=== PATIENT | male | born 1945 | race Caucasian/White ===

== ENCOUNTER 2018-03-29 10:15 | Emergency (ER) | payer MEDICARE ==
[2018-03-29 10:55] VITALS: BP 143/99
--- NOTE | 2018-03-29 10:55 | UC ---
HPI Wound/Suture Re-check - HPI Summary HPI Summary: Pt presents for staple removal from scalp. Jansen were placed on 03/20/18 at [place], [place] emergency room. - History Of Current Complaint Stated Complaint: STAPLE REMOVAL (NOT SEEN HERE) Time Seen by Provider: 03/29/18 10:54 Hx Obtained From: Patient Onset/Duration: Sudden Onset, Still Present Severity: Moderate - Allergies/Home Medications Allergies/Adverse Reactions: Allergies Allergy/AdvReac Type Severity Reaction Status Date / Time amoxicillin [From Augmentin] Allergy Diarrhea Verified 03/29/18 10:47 clavulanic acid Allergy Diarrhea Verified 03/29/18 10:47 [From Augmentin] PMH/Surg Hx/FS Hx/Imm Hx Previously Healthy: Yes Endocrine History: Dyslipidemia Cardiovascular History: Cardiac Disease - Surgical History Surgical History: Yes Surgery Procedure, Year, and Place: HERNIA REPAIR, ZOHREH SHOULDER SURGERY - Family History Known Family History: Positive: Cardiac Disease - Social History Occupation: Retired Lives: With Family Alcohol Use: None Substance Use Type: None Have You Smoked in the Last Year: No Review of Systems Constitutional: Negative Skin: Other - alan intact at site of laceration Eyes: Negative ENT: Negative Respiratory: Negative, Shortness Of Breath Gastrointestinal: Negative Genitourinary: Negative Motor: Negative Neurovascular: Negative Musculoskeletal: Negative Neurological: Negative Psychological: Negative Is Patient Immunocompromised?: No All Other Systems Reviewed And Are Negative: Yes Physical Exam Triage Information Reviewed: Yes Appearance: Well-Appearing Vital Signs Reviewed: Yes Eye Exam: Normal ENT Exam: Normal Dental Exam: Normal Neck exam: Normal Respiratory: Positive: No respiratory distress Musculoskeletal Exam: Normal Neurological Exam: Normal Psychological Exam: Normal Skin Exam: Other - nine alan intact, dried crusted blood surrounding alan , right side of posterior head at posterior parietal anterior occipital. edges well apporximated. no discharge, mild tenderness. Course/Dx - Differential Dx - Laceration/Wound Differential Diagnoses: Suture Removal - nine alan removed, pt tolerated well. Provider Diagnoses: staple removal, (9 alan) Discharge - Sign-Out/Discharge Documenting (check all that apply): Discharge/Admit/Transfer - Discharge Plan Condition: Stable Disposition: HOME Patient Education Materials: Stitches Removal (ED) Referrals: Adan Alexander MD [Primary Care Provider] - If Needed - Billing Disposition and Condition Condition: STABLE Disposition: Home
== END 2018-03-29 11:00 | disposition home or self-care (01) ==
LOC: UCCORT 10:15
DX: S01.01XD Laceration without foreign body of scalp, subsequent encounter (principal); X58.XXXD Exposure to other specified factors, subsequent encounter; Y93.9 Activity, unspecified; Y92.9 Unspecified place or not applicable
CPT/HCPCS: 99211; G0463

== ENCOUNTER 2018-10-12 11:04 | Day surgery (SDC) | payer MEDICARE ==
[~2018-10-12 11:04] MED LIST: Buffered Lidocaine 0.9% SYRIN* 5 ML/SYR SYRINGE INTRADERM ONE; Dexamethasone IV* 4 MG/ML 1 ML (4 MG) IV SLOW PU ONE; Famotidine IV* 10 MG/ML 2 ML (20 mg) IV ONE; Lactated Ringers 1000 ML Bag* 1,000 ML IV SCH
[2018-10-12] MEDS ORDERED: Famotidine IV* 10 MG/ML 2 ML (20 mg) ONE (11:54)
[2018-10-12] MEDS ORDERED: Dexamethasone IV* 4 MG/ML 1 ML (4 MG) ONE (11:54)
[2018-10-12] MEDS ORDERED: Clindamycin 900 MG/D5W BAG(*) 900 MG/50 ML BAG IVPB ONE (11:54)
[2018-10-12] MEDS ORDERED: Midazolam* 1 MG/ML 2 ML VIAL (2 MG) ONE (12:44)
[2018-10-12] MEDS ORDERED: fentaNYL* 50 MCG/ML 2 ML VIAL (100 MCG VIAL) ONE (12:44)
[2018-10-12] MEDS ORDERED: Ondansetron INJ* 2 MG/ML VIAL ONE (12:45)
[2018-10-12] MEDS ORDERED: Propofol* 10 MG/ML 20 ML BTL ONE (12:45)
[2018-10-12] MEDS ORDERED: Lidocain 1% EPI 1:100,000 * 30 ML MDV ONE (13:09)
[2018-10-12] MEDS ORDERED: Mineral Oil Sterile, TOPICAL* 25 ML BTL ONE (13:12)
[2018-10-12] MEDS ORDERED: Naloxone* 0.4 MG/ML 1 ML VIAL IV PRN (14:29)
[2018-10-12 15:45] VITALS: BP 101/66
== END 2018-10-12 16:19 | disposition home or self-care (01) ==
LOC: OR 11:04
PROVIDERS: ATTEND Plastic Surgery
DX: C44.229 Squamous cell carcinoma of skin of left ear and external auricular canal (principal); I10 Essential (primary) hypertension; G47.33 Obstructive sleep apnea (adult) (pediatric); K21.9 Gastro-esophageal reflux disease without esophagitis; N40.0 Benign prostatic hyperplasia without lower urinary tract symptoms; M19.90 Unspecified osteoarthritis, unspecified site; E78.5 Hyperlipidemia, unspecified
CPT/HCPCS: 88305; 88331; 88332; A9270-GY; J1100; J2250; J2405; J2704; J3010

== ENCOUNTER 2019-08-11 16:52 | Emergency (ER) | payer MEDICARE ==
--- OUTSIDE RECORDS SUMMARY | 2019-08-11 17:02 | XMS REPORT | Continuity of Care Document ---
:1945 External Reference #:[id number] Author Name KAY Baron Address [address] [place] [address] Care Team Providers Name Role Phone Adan Alexander MD - Family Medicine Care Team Information Universal Grinder Tool Dc Avila - Orthopaedic Surgery Care Team Information Universal Grinder Tool Problems Active Problems Provider Date Hyperlipidemia Adan Alexander M.D. Onset: 09/27/2014 Benign essential hypertension Adan Alexander M.D. Onset: 09/27/2014 Obstructive sleep apnea syndrome Adan Alexander M.D. Onset: 09/27/2014 Gastroesophageal reflux disease Adan Alexander M.D. Onset: 09/27/2014 Benign prostatic hypertrophy without outflow Adan Alexander M.D. Onset: 12/2013 obstruction Mixed hyperlipidemia Adan Alexander M.D. Onset: 01/16/2016 Social History Type Date Description Comments Sex Unknown Tobacco Use Start: Unknown Never Smoked Cigarettes ETOH Use Rare Tobacco Use Start: Unknown Patient has never smoked Smoking Status Reviewed: 05/22/18 Patient has never smoked Exercise Exercises sporadically is constantly on the Type/Frequency go Allergies, Adverse Reactions, Alerts Active Allergies Reaction Severity Comments Date Augmentin severe GI upset 03/23/2014 Medications Active Medications SIG Qnty Indications Ordering Provider Date Cefaclor 1 po bid x 10 20caps J01.90 Brielle 06/30/2019 250mg Capsules days KAY Cordero Levocetirizine Take 1 Tablet 90tabs Turner Julio Meza, 02/06/2016 Dihydrochloride By Mouth Every M.D. 5mg Tablets Day Simvastatin Take 1 Tablet 90tabs Turner F. Susana, 03/23/2014 20mg Tablets By Mouth Every M.D. Day Omeprazole Take One 90caps Turner Meza, 03/23/[address] Capsule By M.D. Mouth Every Day Tamsulosin HCL Take One 90caps Turner Meza, 03/23/2014 0.4mg Capsule By M.D. Capsules Mouth Every Day Finasteride Take 1 Tablet 90tabs Turner Meza, 03/23/2014 5mg Tablets By Mouth Every M.D. Day Vitamin C 1000MG Unknown E-400 Unknown 400Unit Capsules Shark Cartilage Unknown Lutein Unknown Multi Vitamin Senior Unknown Abelardo Mag Zinc Unknown Immunizations CPT Code Status Date Vaccine Lot # [id number] Given 01/16/2016 Pneumococcal Conjugate Vacc-13 [id number] Vital Signs Date Vital Result Comment 06/30/2019 1:59pm BP Systolic 114 mmHg BP Diastolic 84 mmHg Heart Rate 78 /min Body Temperature 98.1 F Weight 159.00 lb 02/18/2019 10:37am BP Systolic 132 mmHg BP Diastolic 78 mmHg Heart Rate 78 /min Body Temperature 97.3 F Respiratory Rate 20 /min Weight 163.00 lb Results Test Date Facility Test Result H/L Range Note Comprehensive Metabolic 02/18/2019 [facility]) Sodium 138 mEq/L 134-149 Prof Potassium 4.9 mEq/L 3.6-5.5 Chloride 102 mEq/L 94-112 Carbon Dioxide 27 mEq/L 21-32 Glucose 90 mg/dL 70-105 BUN 27 mg/dL High 6-26 1 Creatinine 0.9 mg/dL 0.6-1.4 BUN/Creat Ratio 30.0 CALC 8.0-36.0 Calcium 10.0 mg/dL 8.6-10.2 Total Protein 7.1 g/dL 6.4-8.3 Albumin 4.8 g/dL 3.8-5.5 Globulin 2.3 g/dL 2.0-4.8 A/G Ratio 2.1 CALC 0.6-2.3 Alk. Phosphatase 92 U/L 22-95 Alt (SGPT) 27 U/L 7-35 Ast (Sgot) 28 U/L 5-34 Total Bilirubin 0.9 mg/dL 0.2-1.3 GFR Non- >60 ml/min/1.73m^ >=60 GFR >60 ml/min/1.73m^ >=60 Laboratory test 02/18/2019 Usman Gonzalez(a) Free T4 1.11 ng/dL 0.75- 1.54 finding TSH 3.33 mIU/L 0.50-6.00 CBC Electronic Fma 02/18/2019 Usman Lisa(a) WBC 7.2 x10^3/UL 4.0- 10.0 RBC 4.98 x10^6/UL 3.93-6.00 HGB 15.6 g/dL 12.0-17.0 HCT 46 % 35-50 MCV 92.8 fL 80.0-95.0 MCH 31.3 pg 25.6-32.2 MCHC 33.8 g/dL 32.2-36.0 RDW-CV 12.9 % 11.6-14.4 PLT 255 x10^3/UL 163-400 MPV 10.4 fL 9.4-12.4 Fe# 4.63 x10^3/UL 1.56-6.13 Lymph# 1.55 x10^3/UL 1.18-3.74 Scott# 0.79 x10^3/UL 0.24-0.82 Eos # 0.2 x10^3/UL 0.0-0.5 Baso # 0.04 x10^3/UL 0.01-0.08 Fe% 64.1 % 34.0-70.0 Lymph % 21.4 % 20.0-52.0 Scott% 10.9 % 5.0-12.0 Eos% 2.9 % 0.7-7.0 Baso% 0.6 % 0.1-1.2 Laboratory test 02/18/2019 [facility] Brain Natural 11.7 pg/mL < 100 finding (607)- - Peptide 1 consistent w/ previous results Procedures Date Code Description Status 10/26/2015 27157295 Colonoscopy Completed Medical Devices Description No Information Available Encounters Type Date Location Provider Dx Diagnosis Office Visit 02/18/2019 Main Office Brielle Cordero, R19.7 Diarrhea, unspecified 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 G47.33 Obstructive sleep apnea (adult) (pediatric) R53.1 Weakness R53.83 Other fatigue I25.119 Athscl heart disease of [place] cor art w unsp ang pctrs E78.2 Mixed hyperlipidemia Assessments Date Code Description Provider 06/30/2019 J01.90 Acute sinusitis, unspecified Brielle Gil, [facility] 06/30/2019 G47.33 Obstructive sleep apnea (adult) (pediatric) Brielle Gil, [facility] 06/30/2019 R53.83 Other fatigue Brielle Gil, [facility] 06/30/2019 R51 Headache Brielle Gil, [facility] 02/18/2019 R19.7 Diarrhea, unspecified Brielle Gil, [facility] 02/18/2019 G47.33 Obstructive sleep apnea (adult) (pediatric) Brielle Gil, [facility] 02/18/2019 R53.1 Weakness Brielle Gil, [facility] 02/18/2019 R53.83 Other fatigue Brielle Gil, [facility] 02/18/2019 I25.119 Atherosclerotic heart disease of [place] Brielle Lindobhart , [facility] coronary artery with 02/18/2019 E78.2 [facility] Plan of Treatment 06/30/2019 - [facility] Lindobhart[facility] Acute sinusitis, unspecifiedNew Medication:Cefaclor 250 mg - 1 po bid x 10 daysG47.33 Obstructive sleep apnea ( adult) (pediatric)R53.83 Other [id number] Headache Functional Status Description No Information Available Mental Status Description No Information Available Referrals Refer to Reason for Referral Status Appt Date Kenan Valdez MD persistent diarrhea jw Scheduled 02/22/2019 2 [facility] [address] [phone]
--- OUTSIDE RECORDS SUMMARY | 2019-08-11 17:02 | XMS REPORT | Continuity of Care Document ---
:1945 External Reference #:[id number] Author Name Ewa Wong NP (transmitted by agent of provider Angy No) Address [address] [place] [address] Care Team Providers Name Role Phone Adan Alexander MD - Family Care Team Information Telephoner [phone] Medicine Problems Active Problems Provider Date Obstructive sleep apnea syndrome Josee Amaya MD Onset: 11/19/2015 Hypersomnia, unspecified Josee Amaya MD Onset: 11/19/2015 Periodic leg movements of sleep Antoinette Gruber DNP, RN, BONDING MACHINE OPERATOR- Onset: 08/12 Social History Type Date Description Comments Sex Unknown ETOH Use Drinks Alcoholic Beverages Rarely Tobacco Use Start: Unknown Patient has never smoked Recreational Drug Use Denies Drug Use Smoking Status Reviewed: 06/22/19 Patient has never smoked Exercise Type/Frequency Does not exercise Does physical chores at house (i.e. split wood), siding, climbing ladders, carrying boards. Allergies, Adverse Reactions, Alerts Active Allergies Reaction Severity Comments Date Augmentin diarrhea 07/20/2014 Medications Active Medications SIG Qnty Indications Ordering Provider Date Levocetirizine 1 by mouth Unknown 02/08/2016 Dihydrochloride every day 5mg Tablets Omeprazole TK One C PO qd Unknown 40mg Capsules DR Tamsulosin HCL TK One C PO qd Unknown 0.4mg Capsules Finasteride TK 1 T PO qd Unknown 5mg Tablets Simvastatin 1 by mouth 30tabs Unknown 20mg Tablets every day Multi Vitamin Daily 1 by mouth Unknown Tablets every day Shark Cartilage 2 po daily Unknown Capsules Vitamin E-400 1 by mouth Unknown 400Unit every day Capsules Artificial Tears apply 1 drops Unknown Solution both eyes daily Vitamin C 1 by mouth Unknown 1000mg Tablets every day Onwsrbn-Qtlzapikc-Vwmy 1 by mouth Unknown every day 333-133-5mg Tablets Immunizations Description No Information Available Vital Signs Date Vital Result Comment 06/22/2019 3:49pm Height 65 inches 5'5" Weight 160.00 lb Heart Rate 64 /min BP Systolic 112 mmHg BP Diastolic 70 mmHg O2 % BldC Oximetry 96 % BMI (Body Mass Index) 26.6 kg/m2 05/27/2019 1:50pm Height 65 inches 5'5" Weight 155.38 lb Heart Rate 60 /min BP Systolic Sitting 136 mmHg Lue reg cuff BP Diastolic Sitting 98 mmHg Lue reg cuff Respiratory Rate 20 /min O2 % BldC Oximetry 96 % On Ra BMI (Body Mass Index) 25.9 kg/m2 Results Test Date Facility Test Result H/L Range Note Hemoglobin/Hem 03/22/2019 Hemoglobin 15.7 g/dL Normal 14.0-18.[address] [place] [address] [phone] Hematocrit 46 % Normal 42-52 Laboratory test 02/23/2019 Stool Culture SEE RESULT 1, [address] [place] [address] [phone] C Difficile PCR <pending> Calprotectin <pending> 1 [id number] 2 SEE RESULT BELOW Name: LIOR CHAPMAN : [address]: Ewa Wong NP Acct: [id number] Unit: [id number] AGE: 74 Location: [facility] Re02/23/19 SEX: M Status: REG REF SPEC: [id number] BRIELLE: 02/23/19-[address] [facility] [address]: Eaw Wong NP REQ: [id number] RECD: 02/23/19 STATUS: COMP _ [facility]: Stool Culture COMMENTS: [id number] Procedure Result Reported Site Stool Culture Final 02/25/19- 1542 ML Organism 1 KLEBSIELLA OXYTOCA Result No additional pathogens isolated Klebsiella oxytoca may be a causative agent of antibiotic-associated hemorrhagic colitis. Testing for Salmonella, Shigella, Aeromonas, Plesiomonas, Yersinia and Campylobacter are included in a Stool Culture. Vibrio spp not routinely tested for in a stool culture. If testing is desired, please request specifically when placing test order. Sensitivities not routinely performed on stool isolates, as antibiotics may prolong the carriage rate of bacteria. Please contact the microbiology lab if sensitivities are required. Shiga Toxin 1 2 Final 02/24/19- 1336 ML Organism 1 Negative Shiga Toxin 1 2 Immunochromatographic Assay * ML - Main Lab . END OF REPORT DEPARTMENT OF PATHOLOGY, [address] [place] [address] Eric Stone M.D. Director [facility] # [id number] Procedures Date Code Description Status 03/24/2019 15662 Holter Monitor Review (24 hr)dr solorzano & smitha only Completed 03/24/2019 15829 Stress Test Completed 03/22/2019 14451 ECG Monitor/Recording W/Visual Superimposition Scanning Completed 03/17/2019 65373 Interrogation Device Eval,Implantable Loop Recorder Completed System 03/17/2019 03880 Interrogation Device Eval,Implantable Loop Recorder Completed System 03/17/2019 06857 EKG Tracing & Interpretation Completed 02/27/2019 81786 Implantable Cardio System Loop Recorder Sys Remota Data Completed Acquist[facility] 02/27/2019 89890 Interrogation Dev Loop Recorder Incl Physician Completed Analysis,Rev,Repor 02/15/2019 85202 Dest Lesion Each Addl Lesion 2 Through 14 Each Completed 02/15/2019 58944 Destruction ALL Benign Or Premalignant Lesion (Other Completed Than [place] 01/27/2019 35570 Implantable Cardio System Loop Recorder Sys Remota Data Completed [facility] 01/27/2019 72363 Interrogation Dev Loop Recorder Incl Physician Completed Analysis,Rev,Repor 12/27/2018 65758 Implantable Cardio System Loop Recorder Sys Remota Data Completed [facility] 12/27/2018 04426 Interrogation Dev Loop Recorder Incl Physician Completed Analysis,Rev,Repor 03/20/2005 [id number] Colonoscopy Completed Medical Devices Description No Information Available Encounters Type Date Location Provider Dx Diagnosis Office Visit 05/27/2019 [facility] G47.33 Obstructive sleep 2:00p [facility] apnea (adult) Consumer Insights Specialist (pediatric) G47.10 Hypersomnia, unspecified Office Visit 03/17/2019 3:40p [facility] Kyle Garcia, R00.2 Pal[facility]ations Of [facility] DO FACC R42 Dizziness and giddiness R53.1 Weakness Office Visit 03/15/2019 [facility] Sleep Sal[facility] G47.33 Obstructive 10:00a Services [facility] [place] sleep apnea (adult) (pediatric) Office Visit 03/10/2019 [facility] Gastroenterology Ewa Wong, K59.00 Constipation, 2:30p PARTY SUPPLY SPECIALIST unspecified Office Visit 02/22/2019 [facility] Gastroenterology Ewa Wong, R19.7 Diarrhea, 11:00a PARTY SUPPLY SPECIALIST unspecified R14.0 Abdominal distension (gaseous) Office Visit 02/15/2019 3:50p [facility] Dermatology AT Jerardo Scott, L82.1 Other seborrheic Tad NG keratosis Z08 Encntr for follow-up exam after trtmt for malignant neoplasm Z85.828 Personal history of other malignant neoplasm of skin L57.0 Actinic keratosis Assessments Date Code Description Provider 06/22/2019 G47.33 Obstructive sleep apnea (adult) Ewa Wong NP (pediatric) 06/22/2019 K59.00 Constipation, unspecified Ewa Wong NP 05/27/2019 G47.33 Obstructive sleep apnea (adult) Salome De Los Santos NP (pediatric) 05/27/2019 G47.10 Hypersomnia, unspecified Salome De Los Santos NP 03/24/2019 R00.2 Palpitations Kyle Garcia, DO FAC 03/24/2019 R00.2 Palpitations Kyle Garcia, DO FAC 03/22/2019 R00.2 Palpitations Nurse Visit [facility] 03/22/2019 R00.2 Palpitations Kyle Garcia, DO FAC 03/17/2019 Z95.818 Presence of other cardiac implants and Kyle Garcia, DO FACC grafts 03/17/2019 R00.2 Palpitations Kyle Garcia, DO FAC 03/17/2019 R00.2 Palpitations Kyle Garcia, DO FAC 03/17/2019 Z95.818 Presence of other cardiac implants and [employer] grafts 03/17/2019 R42 Dizziness and giddiness Kyle Garcia, DO FACC 03/17/2019 R53.1 Weakness Kyle Garcia, DO FACC 03/15/2019 G47.33 Obstructive sleep apnea (adult) Salome De Los Santos NP (pediatric) 03/10/2019 K59.00 Constipation, unspecified Ewa Wong, [facility] 02/22/2019 R19.7 Diarrhea, unspecified Ewa Wong, PARTY SUPPLY SPECIALIST 02/22/2019 R14.0 Abdominal distension (gaseous) Ewa Wong NP 02/15/2019 L82.1 Other seborrheic keratosis Jerardo Scott MD 02/15/2019 Z08 Encounter for follow-up examination after Jerardo Scott MD completed treatmen 02/15/2019 Z85.828 Personal history of other malignant Jerardo Scott MD neoplasm of skin 02/15/2019 L57.0 Actinic keratosis Jerardo Scott MD 01/27/2019 R55 Syncope and collapse Kyle Garcia, DO FACC 01/27/2019 Z95.818 Presence of other cardiac implants and Kyle Garcia, DO FACC grafts 12/27/2018 R55 Syncope and collapse Kyle Garcia, DO FACC 12/27/2018 Z95.818 Presence of other cardiac implants and Kyle Garcia, DO FACC grafts Plan of Treatment Future Appointment(s):08/10/2019 2:30 pm - [facility] De Los Santos NP at [facility]02/21/2020 4:00 pm - Jerardo Scott MD at [facility] Dermatology AT Zadvfxgc21/28/2019 - Ewa Wong NPG47.33 Obstructive sleep apnea (adult) (pediatric)K59.00 Constipation, unspecified Functional Status Description No Information Available Mental Status Description No Information Available Referrals Description No Information Available
[2019-08-11 17:15] VITALS: BP 146/80
--- NOTE | 2019-08-11 17:46 | UC ---
Lower Extremity/Ankle HPI - HPI Summary HPI Summary: 74-year-old male presenting with foot pain after dropping a hydraulic cylinder on his foot 2 hours ago. Patient notes pain with ambulation and palpation. He is still able to ambulate. He notes bruising. States he "does not believe it is broken but wants to make sure." Denies taking or wanting any medication for pain. - History of Current Complaint Chief Complaint: UCLowerExtremity Stated Complaint: LEFT FOOT INJURY Hx Obtained From: Patient Severity Currently: Moderate Pain Intensity: 5 Pain Scale Used: 0-10 Numeric - Allergies/Home Medications Allergies/Adverse Reactions: Allergies Allergy/AdvReac Type Severity Reaction Status Date / Time amoxicillin [From Augmentin] Allergy Severe Diarrhea Verified 08/11/19 17:16 clavulanic acid Allergy Severe Diarrhea Verified 08/11/19 17:16 [From Augmentin] Home Medications: Home Medications Simvastatin 20 mg PO DAILY 08/11/19 [History Confirmed 08/11/19] PMH/Surg Hx/FS Hx/Imm Hx Previously Healthy: Yes - Surgical History Surgical History: Yes Surgery Procedure, Year, and Place: RIGHT INGUINAL HERNIA REPAIR 2006, ZOHREH SHOULDER SURGERY FOR TORN ROTATOR CUFF. BILAT CATARACT SURGERY WITH IOL 2017. Internal cardiac cath lab manager placed 2-3 years ago - Family History Known Family History: Positive: Cardiac Disease - Social History Alcohol Use: Rare Substance Use Type: None Smoking Status (MU): Never Smoked Tobacco Have You Smoked in the Last Year: No Review of Systems All Other Systems Reviewed And Are Negative: No Constitutional: Positive: Negative Skin: Positive: Bruising Respiratory: Positive: Negative Cardiovascular: Positive: Negative Gastrointestinal: Positive: Negative. Negative: Vomiting, Nausea Musculoskeletal: Positive: Arthralgia. Negative: Edema Neurological: Negative: Paresthesia, Numbness Physical Exam Triage Information Reviewed: Yes Appearance: Well-Appearing, No Pain Distress, Well-Nourished Vital Signs: Initial Vital Signs Temp 98 F 08/11/19 17:09 Pulse 71 08/11/19 17:09 Resp 16 08/11/19 17:09 BP 146/80 08/11/19 17:09 Pulse Ox 100 08/11/19 17:09 Vital Signs Reviewed: Yes Eyes: Positive: Conjunctiva Clear ENT: Positive: Hearing grossly normal Neck: Positive: Supple Respiratory: Positive: No respiratory distress Cardiovascular: Positive: Pulses Normal - strong pedal pulses bilaterally, Brisk Capillary Refill Neurological Exam: Other - sensation grossly intact Neurological: Positive: Alert Psychological: Positive: Age Appropriate Behavior Skin: Positive: Other - mild ecchymosis noted over MTP joint of left great toe. Diagnostics - Radiology left foot xray Radiology Interpretation Completed By: ED Physician Summary of Radiographic Findings: no fracture Lower Extremity Course/Dx - Course Course Of Treatment: Discussed initial negative x-ray read with patient. Informed him that he will be notified with any abnormalities tomorrow morning when the final report is given. Instructed him to continue to ice and elevate the foot. Instructed him to follow up with PCP if pain persists or go to ED if symptoms worsen. Patient voiced understanding and agreed to the treatment plan. Dr. Forman also reviewed the x-ray and agreed with the plan. - Differential Dx/Diagnosis Provider Diagnosis: Contusion of foot, left Discharge ED - Sign-Out/Discharge Documenting (check all that apply): Patient Departure All imaging exams completed and their final reports reviewed: No - Discharge Plan Condition: Stable Disposition: HOME Patient Education Materials: Foot Contusion (ED) Referrals: Adan Alexander MD [Primary Care Provider] - If Needed Additional Instructions: As discussed, your x-rays were read by the provider who evaluated you tonight. The initial read did not reveal any broken bones. The final read will be given by the radiologist tomorrow morning. You will be notified with any abnormalities. You may continue to ice and elevate your foot to relieve pain and any swelling. You may take vhpq-gla-apmqpxa pain medications as directed for pain relief. Follow up with your primary care physician if your pain persists. Go to the emergency room if your pain worsens, you cannot walk, or you are unable to feel the foot or toes. - Billing Disposition and Condition Condition: STABLE Disposition: Home
--- NOTE | 2019-08-12 15:11 | UC ---
- Progress Note Progress Note: Final radiologist reading of left foot x-ray from August 11, 2019 comes back as negative for fracture. Provider interpretation same date is the same therefore there is no discrepancy. Course/Dx - Diagnoses Provider Diagnoses: Contusion of foot, left Discharge ED - Sign-Out/Discharge Documenting (check all that apply): Patient Departure All imaging exams completed and their final reports reviewed: Yes - Discharge Plan Condition: Stable Disposition: HOME Patient Education Materials: Foot Contusion (ED) Referrals: Adan Alexander MD [Primary Care Provider] - If Needed Additional Instructions: As discussed, your x-rays were read by the provider who evaluated you tonight. The initial read did not reveal any broken bones. The final read will be given by the radiologist tomorrow morning. You will be notified with any abnormalities. You may continue to ice and elevate your foot to relieve pain and any swelling. You may take umuy-ozt-awpgzmo pain medications as directed for pain relief. Follow up with your primary care physician if your pain persists. Go to the emergency room if your pain worsens, you cannot walk, or you are unable to feel the foot or toes. - Billing Disposition and Condition Condition: STABLE Disposition: Home
== END 2019-08-11 18:54 | disposition home or self-care (01) ==
LOC: UCCORT 16:52
DX: S90.32XA Contusion of left foot, initial encounter (principal); W20.8XXA Other cause of strike by thrown, projected or falling object, initial encounter; Y92.9 Unspecified place or not applicable; Z88.1 Allergy status to other antibiotic agents; Z88.0 Allergy status to penicillin
CPT/HCPCS: 99212; G0463